=== PATIENT | male | born 1945 | race Caucasian/White ===

== ENCOUNTER 2018-05-17 06:03 | Day surgery (SDC) | payer MEDICARE, MEDICAID ==
[2018-05-16 14:42] LABS: BASOPHILS % (AUTO) 0.3 % (0-1); EOSINOPHILS # (AUTO) 0.1 X10'3 (0-0.9); EOSINOPHILS % (AUTO) 1.1 % (0-6); HEMATOCRIT 46.5 % (42.0-52.0); HEMOGLOBIN 15.5 g/dl (14.0-17.9); LYMPHOCYTES # (AUTO) 1.9 X10'3 (1.1-4.8); LYMPHOCYTES % (AUTO) 22.2 % (21-51); MEAN CORPUSCULAR HEMOGLOBIN 30.4 PG (27.0-31.0); MEAN CORPUSCULAR HGB CONC 33.4 % (33.0-36.5); MEAN CORPUSCULAR VOLUME 91.1 FL (78-98); MEAN PLATELET VOLUME 7.7 FL (7.4-10.4); MONOCYTES # (AUTO) 0.7 X10'3 (0-0.9); MONOCYTES % (AUTO) 8.8 % (2-12); NEUTROPHILS # (AUTO) 5.6 X10'3 (1.8-7.7); NEUTROPHILS % (AUTO) 67.6 % (42-75); PLATELET COUNT 378 X10'3 (140-440); RED BLOOD COUNT 5.11 X10'6 (4.70-6.10); RED CELL DISTRIBUTION WIDTH 13.3 % (11.5-14.5); WHITE BLOOD COUNT 8.4 X10'3 (4.5-11.0)
[2018-05-16 14:45] LABS: INR 1.1 INR; PROTHROMBIN TIME 11.8 SECONDS (9.0-12.0)
[2018-05-16 14:53] LABS: ALBUMIN 3.5 G/DL (3.4-5.0); ANION GAP 9 (8-16); BLOOD UREA NITROGEN 15 MG/DL (7-18); CHLORIDE 104 MMOL/L (99-107); GLUCOSE 102 MG/DL (70-104); POTASSIUM 4.4 MMOL/L (3.5-5.1); SODIUM 139 MMOL/L (135-145); TOTAL CARBON DIOXIDE 25.6 MMOL/L (24-32); eGFR 46 ML/MIN
[2018-05-17] VITALS (17 sets, daily range): BP systolic 91–133; BP diastolic 50–94
[~2018-05-17] VITALS: Ht 175.3 cm; Wt 89.2 kg
[~2018-05-17 06:03] MED LIST: DABI150C PO; DIGO250T77 PO; DILT180C66 PO; FLO0.4C PO; FURO-150 PO; LOSA25TA96 PO; POTA10TA10 PO
[2018-05-17] MEDS ORDERED: LORazepam 0.5 MG tablet PO ONE (06:20)
[2018-05-17] MEDS ORDERED: diphenhydrAMINE 25mg capsule PO ONE (06:20)
[2018-05-17] MEDS ORDERED: normal saline 1000ml 1,000 ML IV SCH (06:20)
[2018-05-17] MEDS ORDERED: DRON400T2 PO (06:26)
[2018-05-17] MEDS ORDERED: LOSA50TA3 PO (06:26)
[2018-05-17] MEDS ORDERED: LEVO25TA7 PO (06:26)
[2018-05-17] MEDS ORDERED: MIDAZolam 5mg/ml 2ml vial IV ONE (06:45)
[2018-05-17] MEDS ORDERED: atropine 0.1mg/ml 10ml syringe IV ONE (06:45)
[2018-05-17] MEDS ORDERED: morphine 10mg/ml inj. IV ONE (06:45)
[2018-05-17] MEDS ORDERED: amiodarone in dextrose, iso-osm 150mg/100ml bag IV ONE (06:45)
== END 2018-05-17 11:50 | disposition home or self-care (01) ==
LOC: SSTAY O 06:03 → EDSTATUS 08:00 → SSTAY O 11:50
PROVIDERS: ATTEND Internal Medicine Cardiovascular Disease
DX: I48.1 Persistent atrial fibrillation (principal); E78.5 Hyperlipidemia, unspecified; I08.1 Rheumatic disorders of both mitral and tricuspid valves; I11.0 Hypertensive heart disease with heart failure; I50.9 Heart failure, unspecified; Z88.4 Allergy status to anesthetic agent; Z90.89 Acquired absence of other organs; Z72.89 Other problems related to lifestyle; Z98.890 Other specified postprocedural states; Z79.899 Other long term (current) drug therapy
CPT/HCPCS: 36415; 80048; 85025; 85610; 92960; 93005; 93312; J2250; J2270; J7030; Q0163; A4620; J0282; J0461

== ENCOUNTER 2021-02-09 07:01 | Day surgery (SDC) | payer MEDICARE, MEDICAID ==
[2021-02-08 13:18] LABS: BASOPHILS % (AUTO) 0.5 % (0-1); EOSINOPHILS % (AUTO) 0.7 % (0-6); HEMATOCRIT 44.3 % (42.0-52.0); HEMOGLOBIN 14.4 g/dl (14.0-17.9); LYMPHOCYTES # (AUTO) 1.9 X10'3 (1.1-4.8); LYMPHOCYTES % (AUTO) 31.8 % (21-51); MEAN CORPUSCULAR HEMOGLOBIN 31.2 PG (27.0-31.0); MEAN CORPUSCULAR HGB CONC 32.5 g/dL (33.0-36.5); MEAN CORPUSCULAR VOLUME 95.9 FL (78-98); MEAN PLATELET VOLUME 8.5 FL (7.4-10.4); MONOCYTES # (AUTO) 0.6 X10'3 (0-0.9); MONOCYTES % (AUTO) 9.3 % (2-12); NEUTROPHILS # (AUTO) 3.5 X10'3 (1.8-7.7); NEUTROPHILS % (AUTO) 57.7 % (42-75); PLATELET COUNT 158 X10'3 (140-440); RED BLOOD COUNT 4.62 X10'6 (4.70-6.10); RED CELL DISTRIBUTION WIDTH 17.7 % (11.5-14.5); WHITE BLOOD COUNT 6.1 X10'3 (4.5-11.0)
[2021-02-08 13:27] LABS: ALBUMIN 3.1 G/DL (3.4-5.0); ANION GAP 9 (8-16); BLOOD UREA NITROGEN 19 MG/DL (7-18); BUN/CREATININE RATIO 16.4 (5.4-32.0); CALCIUM 9.2 MG/DL (8.5-10.1); CHLORIDE 107 MMOL/L (99-107); CREATININE 1.16 MG/DL (0.60-1.10); GLUCOSE 119 MG/DL (70-104); POTASSIUM 4.5 MMOL/L (3.5-5.1); SODIUM 141 MMOL/L (135-145); TOTAL CARBON DIOXIDE 24.7 MMOL/L (24-32); eGFR 61 ML/MIN
[~2021-02-09] VITALS: Ht 188 cm; Wt 90.4 kg
[2021-02-09] VITALS (23 sets, daily range): BP systolic 84–107; BP diastolic 49–84
[~2021-02-09 07:01] MED LIST changes: -DIGO250T77 PO; -DILT180C66 PO; +DRON400T2 PO; -FLO0.4C PO; -FURO-150 PO; +LEVO25TA7 PO; -LOSA25TA96 PO; +LOSA50TA3 PO
[2021-02-09] MEDS ORDERED: amiodarone 150mg/dext, iso-os 100 ML IV ONE (07:25)
[2021-02-09] MEDS ORDERED: atropine 0.1mg/ml 10ml syringe IV ONE (07:25)
[2021-02-09] MEDS ORDERED: LORazepam 0.5 MG tablet PO ONE (07:25)
[2021-02-09] MEDS ORDERED: MIDAZolam 1mg/ml 10ml vial IV ONE (07:25)
[2021-02-09] MEDS ORDERED: normal saline 1000ml 1,000 ML IV SCH (07:25)
[2021-02-09] MEDS ORDERED: morphine 10mg/ml inj. IV ONE (07:25)
[2021-02-09] MEDS ORDERED: diphenhydrAMINE 25mg capsule PO ONE (07:25)
[2021-02-09] MEDS ORDERED: LOSA100T57 PO (07:35)
[2021-02-09] MEDS ORDERED: ASPI-611 PO (07:35)
[2021-02-09] MEDS ORDERED: FURO40TA4 PO (07:35)
[2021-02-09] MEDS ORDERED: DILT-36 PO (07:35)
[2021-02-09] MEDS ORDERED: LATA2.5D14 (07:35)
[2021-02-09] MEDS ORDERED: APIX5TAB3 PO (07:35)
== END 2021-02-09 12:10 | disposition home or self-care (01) ==
LOC: SSTAY O 07:01
PROVIDERS: ATTEND Internal Medicine Cardiovascular Disease
DX: I48.19 Other persistent atrial fibrillation (principal); I08.1 Rheumatic disorders of both mitral and tricuspid valves; I11.0 Hypertensive heart disease with heart failure; I50.9 Heart failure, unspecified; E78.5 Hyperlipidemia, unspecified; K21.9 Gastro-esophageal reflux disease without esophagitis; E03.9 Hypothyroidism, unspecified; Z98.890 Other specified postprocedural states; Z79.82 Long term (current) use of aspirin; Z79.899 Other long term (current) drug therapy
CPT/HCPCS: 36415; 80048; 85025; 85610; 92960; 93005; 93312; 93325; J2250; J2270; J7030; Q0163